=== PATIENT | female | born 1990 | race American Indian/Alaskan Native ===

== ENCOUNTER 2021-08-24 10:10 | Emergency (ER) | payer BC ==
[2021-08-24 10:18] VITALS: BP 134/97
[2021-08-24] MEDS ORDERED: ALBUTEROL 2.5 MG/3 ML NEBU IH ONE (11:01)
[2021-08-24] MEDS ORDERED: methylPREDNISolone Sod Succinate 125 MG/2 ML INJ IV ONE (11:01)
--- NOTE | 2021-08-24 11:08 | Emergency Department Report ---
HPI - General Chief Complaint: Dyspnea/Respdistress Time Seen by Provider: 08/24/21 10:38 - HPI HPI: 31-year-old -N[place]alese female presents to the emergency department with a complaint of shortness of breath, wheezing, dry cough since last night. She also has a scratchy throat. She denies any fever, chest pain, headache, nausea, vomiting, diarrhea, abdominal pain. The patient has a history of asthma but says it has always been very mild and usually is treated by 1 or 2 puffs from her albuterol inhaler. Patient says that she has been using her albuterol inhaler continuously without any relief. She was going to use an albuterol breathing treatment but says that the medication had . No recent travel or sick contacts at home. She is not vaccinated against COVID-19. ED Past Medical Hx - Past Medical History Previous Medical History?: Yes Hx Arthritis: Yes (RA) Hx Asthma: Yes - Surgical History Past Surgical History?: No Additional Surgical History: ovarian cyst - Medications Home Medications: Home Medications Medication Instructions Recorded Confirmed Last Taken Type Albuterol Sulfate [Albuterol 0.63% 0.63 mg IH TID PRN #1 box 05/29/20 Unknown Rx NEBS] Albuterol Sulfate [Proventil Hfa] 6.7 gm IH TID PRN #1 hfa.aer.ad 05/29/20 Unknown Rx Azithromycin [Zithromax TAB] 250 mg PO QDAY 5 Days #6 tablet 05/29/20 Unknown Rx Nebulizer Accessories [Sootheneb 1 each MC TID PRN #1 each 05/29/20 Unknown Rx [id number] Adult Mask] Nebulizer and Compressor [Easy Air 1 each MC TID PRN #1 each 05/29/20 Unknown Rx Compressor Nebulizer] Prednisone [predniSONE 10 mg 10 mg PO .TAPER #1 tab.ds.pk 05/29/20 Unknown Rx (6-Day Pack, 21 Tabs)] ALBUTEROL NEB's [Proventil 0.083% 2.5 mg IH TID PRN #1 box 08/24/21 Unknown Rx NEBS] Albuterol Mdi (or & Nicu Only) 2 puff IH QID PRN #8.5 gram 08/24/21 Unknown Rx [ProAir HFA Inhaler] predniSONE [Deltasone] 40 mg PO QDAY #6 tab 08/24/21 Unknown Rx ED Review of Systems ROS: Stated complaint: CHEST PAIN ASTHMA ATTACK Other details as noted in HPI Comment: All other systems reviewed and negative Constitutional: denies: chills, fever Eyes: denies: eye pain, vision change ENT: denies: ear pain, throat pain Respiratory: cough, shortness of breath, wheezing Cardiovascular: denies: chest pain, palpitations Gastrointestinal: denies: abdominal pain, vomiting Genitourinary: denies: dysuria, discharge Musculoskeletal: denies: back pain, arthralgia Skin: denies: rash, lesions Neurological: denies: headache, weakness Physical Exam - Physical Exam Vital Signs: Vital Signs 08/24/21 10:15 Temperature 98.0 F Pulse Rate 79 Respiratory 18 Rate Blood Pressure 134/97 O2 Sat by Pulse 98 Oximetry Physical Exam: GENERAL: The patient is well-developed well-nourished. HENT: Normocephalic. Atraumatic. Patient has moist mucous membranes. EYES: Extraocular motions are intact. NECK: Supple. Trachea is midline. CHEST/LUNGS: Moderate wheezing throughout the chest. Mild tachypnea but no accessory muscle use. HEART/CARDIOVASCULAR: Regular. There is no tachycardia. There is no murmur. ABDOMEN: Abdomen is soft, nontender. Patient has normal bowel sounds. SKIN: Skin is warm and dry. NEURO: The patient is awake, alert, and oriented. The patient is cooperative. The patient has no focal neurologic deficits. Normal speech. MUSCULOSKELETAL: There is no tenderness or deformity. There is no limitation range of motion. ED Course Vital Signs 08/24/21 10:15 Temperature 98.0 F Pulse Rate 79 Respiratory 18 Rate Blood Pressure 134/97 O2 Sat by Pulse 98 Oximetry ED Medical Decision Making - Radiology Data Radiology results: image reviewed interpreted by me: Chest x-ray does not show any acute process. There are no pleural effusions, obvious pneumonia and there is no pneumothorax. No widened mediastinum. - Medical Decision Making This patient presents with shortness of breath, wheezing, coughing. On examination she has moderate bronchospasm. The patient was given a continuous breathing treatment with both albuterol and Atrovent. Chest x-ray does not show any pneumonia, pleural effusions, pneumothorax, widened mediastinum, or any other acute process. Upon reevaluation the patient is improved. She now only has mild expiratory wheezing and does not appear in any respiratory distress. She was given a dose of steroids here. The patient will be discharged home with an albuterol inhaler and nebulizer refill, and a course of steroids. Critical Care Time: No Critical care attestation.: If time is entered above; I have spent that time in minutes in the direct care of this critically ill patient, excluding procedure time. ED Disposition Clinical Impression: Bronchospasm Asthma exacerbation Qualifiers: Asthma severity: unspecified severity Asthma persistence: unspecified Qualified Code(s): J45.901 - Unspecified asthma with (acute) exacerbation Disposition: HOME / SELF CARE / HOMELESS Is pt being admited?: No Condition: Stable Instructions: Asthma, Adult, Bronchospasm, Adult Additional Instructions: Please follow-up with a primary care physician in the next few days. I have given you a referral for a local primary care physician, Dr. Knight, and a primary care clinic, [facility]. Return to the emergency department with any worsening of your symptoms, new or concerning symptoms not addressed during this current emergency department visit, or with any acute distress. Prescriptions: predniSONE [Deltasone] 40 mg PO QDAY #6 tab Albuterol Mdi (or & Nicu Only) [ProAir HFA Inhaler] 2 puff IH QID PRN #8.5 gram PRN Reason: Shortness Of Breath ALBUTEROL NEB's [Proventil 0.083% NEBS] 2.5 mg IH TID PRN #1 box PRN Reason: Wheezing Referrals: MOON KNIGHT MD [Staff Physician] - 3-5 Days [facility] [Provider Group] - 3-5 Days Time of Disposition: 13:53
[2021-08-24] MEDS: IPRATROPIUM 0.02% NEBU 2.5 ML IH ONE (11:18)
--- NOTE | 2021-08-24 12:56 | XRay Report ---
CHEST 2 VIEWS INDICATION / CLINICAL INFORMATION: SOB. COMPARISON: 2 views of the chest from 05/28/2020. FINDINGS: SUPPORT DEVICES: None. HEART / MEDIASTINUM: No significant abnormality. LUNGS / PLEURA: No significant pulmonary abnormality. No significant pleural effusion. No pneumothora x. ADDITIONAL FINDINGS: No significant additional findings. IMPRESSION: 1. No acute abnormality of the chest. Signer Name: Kalpesh Briseno MD Signed: 08/24/2021 12:51 PM Workstation Name: [id number]
[2021-08-24] MEDS ORDERED: predniSONE 20 MG TAB PO ONE (13:04)
== END 2021-08-24 14:27 | disposition home or self-care (01) ==
LOC: ED 10:10
DX: J45.901 Unspecified asthma with (acute) exacerbation (principal)
CPT/HCPCS: 71046; 94644; 99283; J2930; J7512